=== PATIENT | male | born 1940 | race Caucasian/White ===

== ENCOUNTER → 2016-05-08 | Outpatient (CLI) | payer OTHER, BC ==
[2016-05-08 17:00] LABS: % FREE PSA 26.9 %; FREE PSA 2.64 ng/ml; PROSTATE SPECIFIC ANTIGEN 9.81 ng/ml (0.000-4.000)
== END | disposition home or self-care (01) ==
LOC: C.LABBC 15:02
PROVIDERS: ATTEND Specialist
DX: R97.20 Elevated prostate specific antigen [PSA] (principal)

== ENCOUNTER → 2016-08-18 | Outpatient (CLI) | payer OTHER, BC ==
[2016-08-18 11:20] LABS: MEAN CORPUSCULAR HGB CONC 32.9 g/dl (32-36); PLATELET COUNT 186 K/uL (130-400)
[2016-08-18 11:38] LABS: CALCIUM 9.4 mg/dl (8.5-10.1)
[2016-08-18 11:42] LABS: ALT/SGPT 26 U/L (12-78); BLOOD UREA NITROGEN 19 mg/dl (7-18); BUN/CREATININE RATIO 14.9 (10-20); CARBON DIOXIDE 29 mmol/L (21-32); CHLORIDE 108 mmol/L (98-107); CHOLESTEROL 185 mg/dl (0-200); GLUCOSE 101 mg/dl (70-99); POTASSIUM 4.9 mmol/L (3.5-5.1); SODIUM 143 mmol/L (136-145); TRIGLYCERIDES 79 mg/dl (0-150); VERY LOW DENSITY LIPOPROT CALC 16 mg/dl
[2016-08-18 11:45] LABS: ALB/GLOB RATIO 1.1 (0.9-2); ALKALINE PHOSPHATASE 88 U/L (45-117); AST/SGOT 24 U/L (15-37); CHOLESTEROL/HDL RATIO 3.6; HDL CHOLESTEROL 51 mg/dl; LDL CHOLESTEROL CALCULATED 118 mg/dl
[2016-08-18 12:14] LABS: COMPLETE YES; EOSINOPHIL % 3.5 %; HEMATOCRIT 46.5 % (42-52); LYMPH ABS # 4.25 K/uL (1.2-3.4); LYMPHOCYTE % 43.4 %; MEAN CELL VOLUME 90.6 fL (80-100); MEAN CORPUSCULAR HEMOGLOBIN 29.8 pg (25-34); NEUTROPHILS % 47.8 %; RED BLOOD COUNT 5.13 M/uL (4.7-6.1); SMUDGE CELLS PRESENT
== END | disposition home or self-care (01) ==
LOC: C.LABBC 07:46
PROVIDERS: ATTEND Internal Medicine
DX: N40.0 Benign prostatic hyperplasia without lower urinary tract symptoms (principal); D72.820 Lymphocytosis (symptomatic); I65.21 Occlusion and stenosis of right carotid artery

== ENCOUNTER → 2016-11-28 | Outpatient (CLI) | payer OTHER, BC ==
[2016-11-28 11:17] LABS: % FREE PSA 26.3 %; FREE PSA 1.89 ng/ml; PROSTATE SPECIFIC ANTIGEN 7.18 ng/ml (0.000-4.000)
== END | disposition home or self-care (01) ==
LOC: C.LABBC 07:54
PROVIDERS: ATTEND Specialist
DX: R97.20 Elevated prostate specific antigen [PSA] (principal)

== ENCOUNTER → 2016-12-12 | Outpatient (CLI) | payer OTHER, BC ==
[2016-12-12 17:04] LABS: BASO % 0.3 %; BASO ABS # 0.03 K/uL (0-0.2); COMPLETE YES; EOS % 2.7 %; HEMATOCRIT 45.9 % (42-52); IG% 0.3 %; LYMPH % 36.2 %; LYMPH ABS # 3.54 K/uL (1.2-3.4); MEAN CELL VOLUME 89.6 fL (80-100); MEAN CORPUSCULAR HEMOGLOBIN 29.9 pg (25-34); MEAN CORPUSCULAR HGB CONC 33.3 g/dl (32-36); MEAN PLATELET VOLUME 9.9 fL (7.4-10.4); MONO % 7.2 %; NEUT % 53.3 %; PLATELET COUNT 190 K/uL (130-400); RED BLOOD COUNT 5.12 M/uL (4.7-6.1); WHITE BLOOD COUNT 9.79 K/uL (4.8-10.8)
[2016-12-12 17:24] LABS: ALT/SGPT 27 U/L (12-78); BLOOD UREA NITROGEN 17 mg/dl (7-18); CALCIUM 9.5 mg/dl (8.5-10.1); CARBON DIOXIDE 30 mmol/L (21-32); CHLORIDE 104 mmol/L (98-107); GLUCOSE 95 mg/dl (70-99); POTASSIUM 4.3 mmol/L (3.5-5.1); SODIUM 139 mmol/L (136-145)
[2016-12-12 17:27] LABS: ALB/GLOB RATIO 1.1 (0.9-2); ALKALINE PHOSPHATASE 98 U/L (45-117); AST/SGOT 25 U/L (15-37)
== END | disposition home or self-care (01) ==
LOC: C.LABBC 15:28
PROVIDERS: ATTEND Physician Assistant
DX: Z01.818 Encounter for other preprocedural examination (principal)

== ENCOUNTER → 2017-02-23 | Outpatient (CLI) | payer OTHER, BC ==
[2017-02-23 10:54] LABS: BASO % 0.2 %; BASO ABS # 0.02 K/uL (0-0.2); COMPLETE YES; EOS % 2.9 %; IG% 0.1 %; LYMPH % 41.4 %; LYMPH ABS # 3.72 K/uL (1.2-3.4); MEAN CELL VOLUME 91.5 fL (80-100); MEAN CORPUSCULAR HEMOGLOBIN 30.2 pg (25-34); MEAN PLATELET VOLUME 9.9 fL (7.4-10.4); MONO % 7.5 %; NEUT % 47.9 %; PLATELET COUNT 186 K/uL (130-400); RED BLOOD COUNT 5.03 M/uL (4.7-6.1); WHITE BLOOD COUNT 8.99 K/uL (4.8-10.8)
== END | disposition home or self-care (01) ==
LOC: C.LABBC 07:38
PROVIDERS: ATTEND Internal Medicine
DX: Z00.00 Encounter for general adult medical examination without abnormal findings (principal); D72.820 Lymphocytosis (symptomatic)

== ENCOUNTER → 2017-05-29 | Outpatient (CLI) | payer OTHER, BC | END | disposition home or self-care (01) | LOC: C.LABBC 13:40 | PROVIDERS: ATTEND Specialist | DX: R97.20 Elevated prostate specific antigen [PSA] (principal) ==

== ENCOUNTER → 2017-06-29 | Outpatient (CLI) | payer OTHER, BC ==
[2017-06-29 16:58] LABS: BASO % 0.3 %; BASO ABS # 0.03 K/uL (0-0.2); EOS % 2.4 %; EOS ABS # 0.21 K/uL (0-0.5); IG# 0.03 K/uL (0.00-0.02); LYMPH ABS # 3.27 K/uL (1.2-3.4); MEAN CORPUSCULAR HGB CONC 33.3 g/dl (32-36); MEAN PLATELET VOLUME 10.1 fL (7.4-10.4); MONO % 7.9 %; NEUT % 52.1 %; NEUT ABS # 4.59 K/uL (1.4-6.5); PLATELET COUNT 179 K/uL (130-400); RED CELL DISTRIBUTION WIDTH CV 13.3 % (11.5-14.5); RED CELL DISTRIBUTION WIDTH SD 43.8 fL (36.4-46.3); WHITE BLOOD COUNT 8.83 K/uL (4.8-10.8)
[2017-06-29 17:10] LABS: ALBUMIN 3.7 gm/dl (3.4-5.0); ALT/SGPT 27 U/L (12-78); AST/SGOT 21 U/L (15-37); BLOOD UREA NITROGEN 18 mg/dl (7-18); CALCIUM 9.4 mg/dl (8.5-10.1); CARBON DIOXIDE 30 mmol/L (21-32); CREATININE 1.17 mg/dl (0.60-1.40); GLUCOSE 102 mg/dl (70-99); POTASSIUM 4.6 mmol/L (3.5-5.1); SODIUM 139 mmol/L (136-145)
[2017-06-29 17:12] LABS: ALKALINE PHOSPHATASE 93 U/L (45-117); TOTAL PROTEIN 7.2 gm/dl (6.4-8.2)
== END | disposition home or self-care (01) ==
LOC: C.LABBC 14:33
PROVIDERS: ATTEND Internal Medicine Hematology & Oncology
DX: D72.820 Lymphocytosis (symptomatic) (principal); R97.20 Elevated prostate specific antigen [PSA]